=== PATIENT | male | born 1965 | race Caucasian/White ===

== ENCOUNTER → 2017-01-29 | Day surgery (SDC) | payer OTHER ==
[2017-01-29] VITALS (7 sets, daily range): BP systolic 108–139; BP diastolic 64–101; PULSE 60–108; TEMP 36.6; O2SAT 93–96; Ht 190.5 cm; Wt 132.0 kg
[~2017-01-29] VITALS: Ht 190.5 cm; Wt 132.0 kg
[~2017-01-29] MED LIST: APIX1TAB3 PO; ASCO100T PO; ASPI81TA28 PO; B-COTAB18 PO; CHOL1000 PO; COEN100C11 PO; KLOR-CON PO; METO25TA56 PO; OMEG10007 PO; POTA10CA28 PO; PROPOFOL IV EMULSION 10 MG/ML 20 ML VIAL IV ONE; PSYL48.511 PO; PSYLLIUM
--- NOTE | 2017-01-29 07:39 | History & Physical Bridge Note ---
H&P Re-Evaluation Bridge Note: I have examined the patient, reviewed the History & Physical and in the interval since the performance of the History & Physical I have noted the following changes of clinical significance: No changes noted
--- NOTE | 2017-01-29 07:59 | Cardiology Procedure Brief Nt ---
Preliminary Cardiology Note Procedure Date Jan 29, 2017. Pre-Procedure Diagnosis Atrial fibrillation with rapid ventricular response Post-Procedure Diagnosis Successful synchronized electrical cardioversion Procedure(s) Performed Successful synchronized electrical cardioversion Maintenance Inspector Bert E/M Engineer(s) None Estimated Blood Loss None Preliminary Findings Successful synchronized electrical cardioversion ws performed using single 150 J biphasic counter shock. Patient aroused post procedure having tolerated well. Recommendations Medical management Fluids (cc crystalloids) 50 Specimens None Complication(s) None Disposition Home Performance Consultant Holding Area
--- NOTE | 2017-01-29 08:29 | Anesthesiology Progress Note ---
Anesthesia Post Op Note Date & Time Jan 29, 2017 at 08:28 Vital Signs Pain Intensity: 0 Vital Signs Past 12 Hours Date Time Temp Pulse Resp B/P Pulse Ox O2 Delivery O2 Flow Rate FiO2 01/29/17 08:20 62 16 108/68 96 Room Air 01/29/17 08:19 62 16 108/68 96 Room Air 01/29/17 08:09 60 16 107/68 96 Room Air 01/29/17 07:59 60 16 108/79 96 Room Air 01/29/17 07:59 60 16 108/79 96 Room Air 01/29/17 07:55 108 16 109/73 96 Nasal Cannula 4 01/29/17 07:53 108 16 123/86 96 Nasal Cannula 4 01/29/17 07:50 108 16 134/96 96 Nasal Cannula 4 01/29/17 07:45 108 16 127/87 96 Nasal Cannula 4 01/29/17 07:19 36.6 108 16 139/101 93 Room Air Notes Mental Status: alert / awake / arousable, participated in evaluation Pt Amnestic to Procedure: Yes Nausea / Vomiting: adequately controlled Pain: adequately controlled Airway Patency, RR, SpO2: stable & adequate BP & HR: stable & adequate Hydration State: stable & adequate Anesthetic Complications: no major complications apparent
--- NOTE | 2017-01-29 09:17 | Discharge Instructions ---
Discharge Instructions Procedure Procedure Date: Jan 29, 2017. Reason for Visit: W/ Anethesia, Atrial Flutter- Dr. Churchill. Discharge Discharge Date: Jan 29, 2017. Last Recorded Wt (Kilograms): 132 Anesthesia Post Anesthesia Instructions: If you have had General Anesthesia or IV Sedation: * Do not drive today. * Resume driving when surgeon permits. * Do not make important decisions or sign legal documents today. * Call surgeon for: 1. Temperature elevations greater than 101 degrees F. 2. Uncontrollable pain. 3. Excessive bleeding. 4. Persistent nausea and vomiting. 5. Medication intolerance (nausea, vomiting or rash). * For nausea and vomiting use only clear liquids such as: tea, soda, bouillon until nausea subsides, then gradually increase diet as tolerated. * If you have any concerns or questions, call your surgeon's office. If physician is unavailable and it is an emergency, call 911 or go to the nearest emergency room. Instructions Activity Recommendations: limitations as noted below Recommended Home Diet: resume previous diet Allergies: Coded Allergies: No Known Allergies (Unverified , 11/05/14) Provider Instructions ACTIVITY RECOMMENDATIONS: Resume activities as tolerated with no limitations unless specified. __ No lifting over __ pounds for 24 hours. __ Do not engage in vigorous exercise, sexual activity, or sports for 24 hours. __ Do not drive or operate any motorized equipment for 24 hours. __ You may return to work/school tomorrow. _ Follow Up Follow-up with: Racheal Kerns next week as scheduled Alonzo Veliz Recommendations: Call your doctor if: * Temperature above 101 degrees * Pain not relieved by pain medicine ordered * There is increased drainage or redness from any incision * You have any unanswered questions or concerns. Your Doctors Instructions noted above were prepared by provider Aubrey Noel. Patient Signature Section: Patient Instructions Signature Page Manuel Raymond Patient (or Guardian) Signature/Date: I have read and understand the instructions given to me by my caregivers. Caregiver/RN/Doctor Signature/Date: The above-named patient and/or guardian has received patient instructions on this date. + Original Patient Signature Page (only) stays with chart. Please make copy for patient.
--- NOTE | 2017-01-29 10:43 | CARDIOVERSION ---
DATE OF OPERATION: 01/29/2017 DATE OF PROCEDURE: 01/29/2017. SYNCHRONIZED ELECTRICAL CARDIOVERSION REPORT PRIMARY CARE PHYSICIAN: Dr. Cristina Malone. PRIMARY MISSION COMMANDER: Dr. Rhys Churchill. INDICATIONS: Atrial fibrillation with rapid ventricular response symptomatic. PROCEDURE: After informed sent was obtained the patient was sedated via anesthesia consult with continuous heart rate, blood pressure, oxygen and end tidal CO2 monitoring. A single 150 joule biphasic countershock was administered with successful conversion to sinus rhythm. EKG post procedure demonstrated sinus bradycardia with right bundle branch block, left anterior fascicular block. Post procedure patient aroused having tolerated well. RECOMMENDATIONS: The patient will be discharged on same home medications with planned followup with Racheal Kerns as already scheduled next week. The patient cautioned to report any new symptoms or complaints promptly. No adjustments made in medical therapy. I attest to the content of the Intraoperative Record and any orders documented therein. Any exceptio ns are noted below.
== END | disposition home or self-care (01) ==
LOC: C.CATH 06:39
PROVIDERS: ATTEND Internal Medicine Cardiovascular Disease
DX: I48.91 Unspecified atrial fibrillation (principal); I48.92 Unspecified atrial flutter; E78.5 Hyperlipidemia, unspecified; I10 Essential (primary) hypertension; Z79.01 Long term (current) use of anticoagulants; G47.33 Obstructive sleep apnea (adult) (pediatric); Z82.49 Family history of ischemic heart disease and other diseases of the circulatory system

== ENCOUNTER 2017-03-04 11:58 | Emergency (ER) | payer OTHER ==
[~2017-03-04] VITALS: Ht 190.5 cm; Wt 129.5 kg
[2017-03-04] VITALS (7 sets, daily range): BP systolic 114–134; BP diastolic 60–80; PULSE 58–93; TEMP 36.5; O2SAT 95–99; Ht 190.5 cm; Wt 129.5 kg
[~2017-03-04 11:58] MED LIST changes: -ASCO100T PO; +ASCO100T4 PO; -POTA10CA28 PO; -PROPOFOL IV EMULSION 10 MG/ML 20 ML VIAL IV ONE; -PSYL48.511 PO
[2017-03-04] MEDS ORDERED: METOPROLOL TARTRATE 1 MG/ML VIAL IV STA ×3 (12:20→14:10)
--- NOTE | 2017-03-04 12:33 | DIAGNOSTIC IMAGING REPORT ---
SINGLE VIEW CHEST CLINICAL HISTORY: Atypical chest pain. FINDINGS: An AP, portable, upright chest radiograph is compared to study dated 11/05/2014 and correlated with chest CT dated 11/06/2014. The examination is degraded by portable technique and patient rotation. The heart is mildly enlarged. The pulmonary vasculature is noncongested. Chronic interstitial thickening is similar to previous. No airspace consolidation or pleural effusion is identified. No pneumothorax is seen. The bony thorax is grossly intact. Degenerative change is noted throughout the thoracic spine. IMPRESSION: Mild cardiac enlargement with no acute cardiopulmonary abnormality. Electronically signed by: Dimitri Hernandze M.D. 03/04/2017 12:31 PM Dictated Date/Time: 03/04/2017 12:30 PM
[2017-03-04 12:51] LABS: BASO % 0.6 %; BASO ABS # 0.04 K/uL (0-0.2); COMPLETE YES; EOS % 2.9 %; HEMATOCRIT 45.7 % (42-52); IG% 0.2 %; LYMPH % 41.4 %; LYMPH ABS # 2.61 K/uL (1.2-3.4); MEAN CELL VOLUME 89.6 fL (80-100); MEAN CORPUSCULAR HEMOGLOBIN 32.7 pg (25-34); MEAN CORPUSCULAR HGB CONC 36.5 g/dl (32-36); MEAN PLATELET VOLUME 9.7 fL (7.4-10.4); MONO % 7.3 %; NEUT % 47.6 %; PLATELET COUNT 192 K/uL (130-400); WHITE BLOOD COUNT 6.31 K/uL (4.8-10.8)
[2017-03-04 13:07] LABS: BUN/CREATININE RATIO 12.9 (10-20); CALCIUM 9.4 mg/dl (8.5-10.1); CREATININE 0.99 mg/dl (0.60-1.40); MAGNESIUM 2.3 mg/dl (1.8-2.4)
[2017-03-04 13:09] LABS: INR 1.1 (0.9-1.1); PARTIAL THROMBOPLASTIN RATIO 1.2; PROTHROMBIN TIME (PATIENT) 11.3 SECONDS (9.0-12.0)
[2017-03-04] MEDS ORDERED: POTA10CA28 PO (13:48)
[2017-03-04] MEDS ORDERED: PSYL48.511 PO (13:48)
[2017-03-04 13:52] LABS: CHOLESTEROL/HDL RATIO 5.4
[2017-03-04] MEDS ORDERED: MIDAZOLAM HCL 1 MG/ML 2ML VIAL ONE (15:34)
[2017-03-04] MEDS ORDERED: PROPOFOL IV EMULSION 10 MG/ML 20 ML VIAL IV ONE (15:34)
[2017-03-04] MEDS ORDERED: LIDOCAINE HCL 2% 2 ML VIAL (20MG/ML) ONE (15:34)
--- NOTE | 2017-03-04 15:58 | Cardiology Procedure Brief Nt ---
Preliminary Cardiology Note Procedure Date Mar 04, 2017. Pre-Procedure Diagnosis Atrial flutter with rapi ventricular response Post-Procedure Diagnosis Successful synchronized electrical cardioversion Procedure(s) Performed Successful synchronized electrical cardioversion Data Integrity Consultant Bert Home Office Claims Examiner(s) None Estimated Blood Loss None Preliminary Findings Successful synchronized electrical cardioversion was performed using 150J biphasic synchronized electrical countershock Patient aroused tolerated well EKG Sinus Bradycardia RBBB, LAFB Fluids (cc crystalloids) 50 Specimens None Anesthesia Per Dr sampson Complication(s) None Disposition [facility]
[2017-03-04] MEDS ORDERED: METO25TA56 PO (16:00)
--- NOTE | 2017-03-04 16:01 | Discharge Instructions ---
Discharge Instructions Procedure Procedure Date: Mar 04, 2017. Reason for Visit: Cardiac Assessment, Referred By Md. Discharge Discharge Date: Mar 04, 2017. Discharge Diagnosis: Successful synchronized electrical cardioversion Last Recorded Wt (Kilograms): 129.5 Anesthesia Post Anesthesia Instructions: If you have had General Anesthesia or IV Sedation: * Do not drive today. * Resume driving when surgeon permits. * Do not make important decisions or sign legal documents today. * Call surgeon for: 1. Temperature elevations greater than 101 degrees F. 2. Uncontrollable pain. 3. Excessive bleeding. 4. Persistent nausea and vomiting. 5. Medication intolerance (nausea, vomiting or rash). * For nausea and vomiting use only clear liquids such as: tea, soda, bouillon until nausea subsides, then gradually increase diet as tolerated. * If you have any concerns or questions, call your surgeon's office. If physician is unavailable and it is an emergency, call 911 or go to the nearest emergency room. Instructions Activity Recommendations: limitations as noted below, resume regular activity Recommended Home Diet: resume previous diet Allergies: Coded Allergies: No Known Allergies (Unverified , 03/04/17) Provider Instructions ACTIVITY RECOMMENDATIONS: Resume activities as tolerated with no limitations unless specified. __ No lifting over __ pounds for 24 hours. __ Do not engage in vigorous exercise, sexual activity, or sports for 24 hours. __ Do not drive or operate any motorized equipment for 24 hours. __ You may return to work/school tomorrow. Follow Up Follow-up with: Dr Noel as scheduled Alonzo Mckeony Recommendations: Call your doctor if: * Temperature above 101 degrees * Pain not relieved by pain medicine ordered * There is increased drainage or redness from any incision * You have any unanswered questions or concerns. Your Doctors Instructions noted above were prepared by provider Aubrey Noel. Patient Signature Section: Patient Instructions Signature Page Manuel Segundo Patient (or Guardian) Signature/Date: I have read and understand the instructions given to me by my caregivers. Caregiver/RN/Doctor Signature/Date: The above-named patient and/or guardian has received patient instructions on this date. + Original Patient Signature Page (only) stays with chart. Please make copy for patient.
--- NOTE | 2017-03-04 16:05 | CARDIOVERSION ---
DATE OF OPERATION: 03/04/2017 INDICATIONS: A fib/flutter with rapid ventricular response. BRIEF HISTORY: The patient is a 51-year-old male with paroxysmal A fib/flutter who lapsed into atrial arrhythmia post stress echocardiography today. Stress testing negative for ischemia. Rates were poorly controlled with IV beta blockers. He is referred now for synchronized electrical cardioversion. PROCEDURE: After procedure and risks were explained in detail to the patient informed consent was obtained. The patient was sedated by anesthesia consult Dr. Gold in a postprandial state. A single synchronized 150 joule biphasic shock was administered with synchronous timing with successful conversion to sinus rhythm. Postprocedure the patient aroused having tolerated well with plan to discharge to home and continue current therapies with slight increase in beta ismael with metoprolol 15 mg a.m. and 25 p.m. I attest to the content of the Intraoperative Record and any orders documented therein. Any exceptio ns are noted below.
--- NOTE | 2017-03-04 16:24 | Anesthesiology Progress Note ---
Anesthesia Post Op Note Date & Time Mar 04, 2017 at 16:23 Vital Signs Pain Intensity: 0 Vital Signs Past 12 Hours Date Time Temp Pulse Resp B/P Pulse Ox O2 Delivery O2 Flow Rate FiO2 03/04/17 16:11 60 16 118/72 98 Room Air 03/04/17 16:11 62 16 127/78 98 Room Air 03/04/17 16:01 58 16 113/70 96 Room Air 03/04/17 15:51 59 16 131/68 96 Room Air 03/04/17 15:50 58 16 114/70 99 Room Air 03/04/17 15:45 58 16 125/74 99 Nasal Cannula 4 03/04/17 15:40 78 16 116/80 98 Nasal Cannula 4 03/04/17 15:38 78 16 116/60 98 Nasal Cannula 4 03/04/17 15:25 36.5 93 16 134/74 96 Room Air 03/04/17 14:31 110/82 03/04/17 14:30 83 17 95 03/04/17 14:20 109/78 03/04/17 14:16 113 152/96 03/04/17 14:15 69 14 123/84 03/04/17 14:14 113 20 152/96 97 Room Air 03/04/17 14:11 103 16 152/96 96 Room Air 03/04/17 13:50 141 124/70 03/04/17 13:48 118 17 124/70 96 Room Air 03/04/17 12:42 110 16 112/84 95 Room Air 03/04/17 12:35 105 03/04/17 12:30 110 03/04/17 12:22 116 18 131/90 97 Room Air 03/04/17 12:12 98 Room Air 03/04/17 12:12 127 16 159/109 96 Room Air 03/04/17 12:04 36.8 113 18 150/92 96 Room Air Notes Mental Status: alert / awake / arousable, participated in evaluation Pt Amnestic to Procedure: Yes Nausea / Vomiting: adequately controlled Pain: adequately controlled Airway Patency, RR, SpO2: stable & adequate BP & HR: stable & adequate Hydration State: stable & adequate Anesthetic Complications: no major complications apparent Pt doing very well. In SR w/ stable vitals, wide awake.
--- NOTE | 2017-03-04 17:41 | EMERGENCY ROOM VISIT NOTE ---
History Report prepared by Jose M: Elaina Foster Under the Supervision of: Dr. Shine Ortega M.D. First contact with patient: 12:12 Chief Complaint: CARDIAC ASSESSMENT Stated Complaint: CARDIAC ASSESSMENT, REFERRED BY MD Nursing Triage Summary: Pt states sent by component engineer. "I had a stress test this morning. I went into a.flutter so they sent me here to be cardioverted." Denies cp, sob, dizzy, lightheadedness. History of Present Illness The patient is a 51 year old male who presents to the Emergency Room per cardiology referral to be evaluated for a persistent irregular heart rhythm that began this morning. This morning, the patient was doing a stress test on a treadmill. About 7 minutes into the test, the patient converted to a-fib. At that time, the patient did notice some palpitations. Currently, he does not have any complaints and is feeling well except for feeling like his heart is beating very quickly and hard. His most recent meal was last night. He reports drinking 2L water this morning around 0830. The patient has a history of a-fib and had an electrical cardioversion by Dr. Noel on January 29. Denies fever, headaches, chest pain, shortness of breath, vomiting, diarrhea, leg swelling, or other complaints. Source of History: patient Onset: this morning Position: other (global) Quality: other (a-fib) Timing: other (persistent) Associated Symptoms: No SOB, No chest pain, No diarrhea, No fevers, No headache, No vomiting Review of Systems See HPI for pertinent positives & negatives. A total of 10 systems reviewed and were otherwise negative. Past Medical & Surgical Medical Problems: (1) Atrial flutter (2) HTN (hypertension) Family History Patient reports no known family medical history. Social History Smoking Status: Never Smoker Alcohol Use: none Marital Status: Occupation Status: employed Current/Historical Medications Scheduled Apixaban (Eliquis), 5 MG PO BID Ascorbic Acid (Vitamin C), 1 TAB PO DAILY Aspirin (Aspirin Ec), 1 TAB PO DAILY B-Complex Vitamins (Vitamin B Complex), 1 TAB PO DAILY Cholecalciferol (Vitamin D3), 1 TAB PO DAILY Coenzyme Q10 (Ubidecarenone) (Coq-10), 1 TAB PO DAILY Fish Oil ([place]-3), 1 CAP PO DAILY Metoprolol Tartrate (Lopressor) (Lopressor), 1 TAB PO BID Potassium Chloride (Micro-K Ext Rel), 10 MEQ PO DAILY Psyllium (Eq Fiber Therapy), 1 PKT PO DAILY Allergies Coded Allergies: No Known Allergies (Unverified , 03/04/17) Physical Exam Vital Signs Date Time Temp Pulse Resp B/P Pulse Ox O2 Delivery O2 Flow Rate FiO2 03/04/17 16:45 58 18 134/78 98 Room Air 03/04/17 16:30 57 18 132/74 98 Room Air 03/04/17 16:15 60 18 125/70 98 Room Air 03/04/17 16:11 60 16 118/72 98 Room Air 03/04/17 16:11 62 16 127/78 98 Room Air 03/04/17 16:01 58 16 113/70 96 Room Air 03/04/17 15:51 59 16 131/68 96 Room Air 03/04/17 15:50 58 16 114/70 99 Room Air 03/04/17 15:45 58 16 125/74 99 Nasal Cannula 4 03/04/17 15:40 78 16 116/80 98 Nasal Cannula 4 03/04/17 15:38 78 16 116/60 98 Nasal Cannula 4 03/04/17 15:25 36.5 93 16 134/74 96 Room Air 03/04/17 14:31 110/82 03/04/17 14:30 83 17 95 03/04/17 14:20 109/78 03/04/17 14:16 113 152/96 03/04/17 14:15 69 14 123/84 03/04/17 14:14 113 20 152/96 97 Room Air 03/04/17 14:11 103 16 152/96 96 Room Air 03/04/17 13:50 141 124/70 03/04/17 13:48 118 17 124/70 96 Room Air 03/04/17 12:42 110 16 112/84 95 Room Air 03/04/17 12:35 105 03/04/17 12:30 110 03/04/17 12:22 116 18 131/90 97 Room Air 03/04/17 12:12 98 Room Air 03/04/17 12:12 127 16 159/109 96 Room Air 03/04/17 12:04 36.8 113 18 150/92 96 Room Air Physical Exam Constitutional: Vital signs reviewed. Eyes: Pupils are equal round reactive to light. Conjunctiva are noninjected. ENT: Pharynx is clear without erythema or exudate. Mucous membranes are moist. Neck supple without meningeal signs. Respiratory: Clear to auscultation bilaterally. Breath sounds are equal bilaterally. Cardiovascular: Irregularly irregular rhythm. Tachycardic rate between 100 and 125. GI: Soft, nondistended and nontender. Bowel sounds are present. Musculoskeletal: No peripheral edema. No lower extremity tenderness. Integumentary: No cyanosis. Neurological: The patient is awake and alert. No focal deficits. Psychiatric: Normal affect. Medical Decision & Procedures ER Provider Diagnostic Interpretation: Radiology results as stated below per my review and the radiologist's interpretation: SINGLE VIEW CHEST CLINICAL HISTORY: Atypical chest pain. FINDINGS: An AP, portable, upright chest radiograph is compared to study dated 11/05/2014 and correlated with chest CT dated 11/06/2014. The examination is degraded by portable technique and patient rotation. The heart is mildly enlarged. The pulmonary vasculature is noncongested. Chronic interstitial thickening is similar to previous. No airspace consolidation or pleural effusion is identified. No pneumothorax is seen. The bony thorax is grossly intact. Degenerative change is noted throughout the thoracic spine. IMPRESSION: Mild cardiac enlargement with no acute cardiopulmonary abnormality. Electronically signed by: Dimitri Hernandez M.D. 03/04/2017 12:31 PM Dictated Date/Time: 03/04/2017 12:30 PM Laboratory Results 03/04/17 12:38 Red Blood Count 5.10, Mean Corpuscular Volume 89.6, Mean Corpuscular Hemoglobin 32.7, Mean Corpuscular Hemoglobin Concent 36.5, Mean Platelet Volume 9.7, Neutrophils (%) (Auto) 47.6, Lymphocytes (%) (Auto) 41.4, Monocytes (%) (Auto) 7.3, Eosinophils (%) (Auto) 2.9, Basophils (%) (Auto) 0.6, Neutrophils # (Auto) 3.01, Lymphocytes # (Auto) 2.61, Monocytes # (Auto) 0.46, Eosinophils # (Auto) 0.18, Basophils # (Auto) 0.04 03/04/17 12:38 Test 03/04/17 12:38 03/04/17 12:41 White Blood Count 6.31 K/uL (4.8-10.8) Red Blood Count 5.10 M/uL (4.7-6.1) Hemoglobin 16.7 g/dL (14.0-18.0) Hematocrit 45.7 % (42-52) Mean Corpuscular Volume 89.6 fL (80-100) Mean Corpuscular Hemoglobin 32.7 pg (25-34) Mean Corpuscular Hemoglobin Concent 36.5 g/dl (32-36) Platelet Count 192 K/uL (130-400) Mean Platelet Volume 9.7 fL (7.4-10.4) Neutrophils (%) (Auto) 47.6 % Lymphocytes (%) (Auto) 41.4 % Monocytes (%) (Auto) 7.3 % Eosinophils (%) (Auto) 2.9 % Basophils (%) (Auto) 0.6 % Neutrophils # (Auto) 3.01 K/uL (1.4-6.5) Lymphocytes # (Auto) 2.61 K/uL (1.2-3.4) Monocytes # (Auto) 0.46 K/uL (0.11-0.59) Eosinophils # (Auto) 0.18 K/uL (0-0.5) Basophils # (Auto) 0.04 K/uL (0-0.2) RDW Standard Deviation 40.3 fL (36.4-46.3) RDW Coefficient of Variation 12.2 % (11.5-14.5) Immature Granulocyte % (Auto) 0.2 % Immature Granulocyte # (Auto) 0.01 K/uL (0.00-0.02) Prothrombin Time 11.3 SECONDS (9.0-12.0) Prothromb Time International Ratio 1.1 (0.9-1.1) Activated Partial Thromboplast Time 30.4 SECONDS (21.0-31.0) Partial Thromboplastin Ratio 1.2 Anion Gap 6.0 mmol/L (3-11) Est Creatinine Clear Calc Drug Dose 126.3 ml/min Estimated GFR () 100.4 Estimated GFR (Non- 86.6 BUN/Creatinine Ratio 12.9 (10-20) Calcium Level 9.4 mg/dl (8.5-10.1) Magnesium Level 2.3 mg/dl (1.8-2.4) Triglycerides Level 253 mg/dl (0-150) Cholesterol Level 177 mg/dl (0-200) HDL Cholesterol 33 mg/dl LDL Cholesterol, Calculated 93 mg/dl VLDL Cholesterol, Calculated 51 mg/dl Cholesterol/HDL Ratio 5.4 Bedside Troponin I 0.000 ng/ml (0-0.045) Laboratory results as reviewed by me. Medications Administered Medications (Trade) Dose Ordered Sig/Alma Route Start Time Stop Time Status Last Admin Dose Admin Metoprolol Tartrate (Lopressor Iv) 2.5 mg NOW STAT IV 03/04/17 12:20 03/04/17 12:21 DC 03/04/17 12:30 2.5 MG Metoprolol Tartrate (Lopressor Iv) 2.5 mg NOW STAT IV 03/04/17 13:17 03/04/17 13:19 DC 03/04/17 13:50 2.5 MG Metoprolol Tartrate (Lopressor Iv) 2.5 mg NOW STAT IV 03/04/17 14:10 03/04/17 14:11 DC 03/04/17 14:16 2.5 MG ECG Indication: palpitations Rate (beats per minute): 119 Rhythm: atrial fibrillation Findings: other (bifasciular block, nonspecific ST T wave changes) ED Course 1214: The patient was evaluated in room A1. A complete history and physical exam was performed. 1220: Ordered Lopressor 2.5 mg IV. 1235: I reassessed the patient. His heart rate was 99. Dr. Noel will come to see the patient and plans to take the patient to the rn labor and delivery for cardioversion. 1316: I reassessed the patient. His heart rate was 125. We are waiting for Dr. Noel. The patient requested a lipid panel be drawn. Ordered Lopressor 2.5 mg IV. 1408: I reassessed the patient. His heart rate was still in the 120s. He has no complaints at this time. Dr. Noel is currently in a procedure. Ordered Lopressor 2.5 mg IV 1433: I reassessed the patient. Dr. Noel of Cardiology was in the room speaking with the patient. The patient's heart rate was 107. 1435: Dr. Noel will be taking the patient to the rn labor and delivery and will discharge him from there after cardioversion. Medical Decision This is a 51-year-old male who presents with atrial fibrillation. I did perform a limited focused review of portions of the patient's old chart on the electronic medical record. He went under an electrical cardioversion by Dr. Noel on January 29 using 150 joules. I did evaluate the patient as noted above. I did obtain history from the patient as well as Dr. Barahona of cardiology. He did send the patient over for rate control and discuss case with Dr. Burgos for electrical cardioversion. He was given Lopressor 5 mg IV prior to arrival. The patient was placed on a continuous stagecraft professor. I did order and personally review the patient's 12-lead EKG and chest x-ray as described above. The patient is still tachycardic. He was given a total of 3 doses of Lopressor 2.5 mg IV for rate control. His heart rate did come down to about 100. I did order and review the patient's blood work as noted in the electronic medical record. I did discuss the case with Dr. Noel of cardiology who saw the patient in the ED and took him to the cardiac catheterization lab for electrical cardioversion. He will be discharged from the Ophthalmic Nurse. Impression Primary Impression: Atrial fibrillation with rapid ventricular response Critical Care I have personally spent 35 minutes of critical care time in the direct management of this patient. This includes bedside care, interpretation of diagnostic studies, and testing, discussion with consultants, patient, and family members, and other required patient management activities. This 35 minutes is in excess of all separately billable procedures. Scribe Attestation The scribe's documentation has been prepared under my direct and personally reviewed by me in its entirety. I confirm that the note above accurately reflects all work, treatment, procedures, and medical decision making performed by me. Departure Information Dispostion Other (rn labor and delivery for cardioversion) Prescriptions Metoprolol Tartrate (Lopressor) (Lopressor) 25 Mg Tab 1 TAB PO BID for 30 Days, #60 TAB 5 Refills Take Two in am, one in PM Prov: Aubrey Noel M.D. 03/04/17 Referrals Cristina Malone DO (PCP) Patient Instructions [facility]
--- NOTE | 2017-03-05 07:08 | HISTORY & PHYSICAL EXAMINATION ---
DATE OF CONSULTATION: 03/04/2017 REFERRING PHYSICIAN: Dr. Ortega. INDICATIONS: Atrial fib/flutter with rapid ventricular response. HISTORY OF PRESENT ILLNESS: The patient is a 51-year-old male whose history is notable for paroxysmal Afib/flutter, having undergone recently a synchronized electrical cardioversion on 01/30/2017 with successful conversion to sinus rhythm. On evaluation recently, he was found to have intermittent tachypalpitations and he was referred for stress echocardiography. The patient today underwent a nonischemic stress echocardiogram, but while in the recovery phase, once again lapsed back into atrial fibrillation/flutter with rapid ventricular response. He was seen in the Emergency Room for evaluation, referred now for assessment and subsequent synchronized electrical cardioversion by my recommendation. Laboratory studies today demonstrate normal electrolytes. EKG reveals atrial fibrillation/flutter with rapid ventricular response with right bundle-branch block and left anterior fascicular block. ALLERGIES: None. MEDICATIONS PRIOR TO HOSPITALIZATION: Metoprolol 25 mg twice per day, Eliquis 5 mg b.i.d., vitamin B complex, vitamin D3, potassium chloride 10 mg daily, selenium fiber. PAST SURGICAL HISTORY: Notable for vasectomy. SOCIAL HISTORY: The patient is a nonsmoker, nondrinker. 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 OBJECTIVE: VITAL SIGNS: Heart rate is 110. Blood pressures is 134/74. NECK: Thick. There is no jugular venous distention, no carotid bruits. LUNGS: Clear to auscultation. CARDIOVASCULAR: Irregularly irregular. EXTREMITIES: Without cyanosis or clubbing. There is no peripheral edema. ABDOMEN: There is no abdominal tenderness or bloating. LABORATORY DATA: White cell count 6.3, hemoglobin 16.7. Sodium is 140, potassium is 4.0, chloride is 107, bicarbonate is 27, BUN is 13, creatinine is 0.99. Cholesterol is 177 with an LDL of 93 and HDL of 33. IMPRESSION: A 51-year-old male with paroxysmal atrial fibrillation/flutter with recurrence after a recent stress test was nonischemic. Plan will be for synchronized electrical cardioversion today with ultimate plans for increase in beta ismael therapy. Follow up as an outpatient with continued anticoagulation. Discussed possible options of antiarrhythmic therapy if unsuccessful or if short return occurs, likely with inpatient management for initiation of sotalol.
== END 2017-03-04 14:40 | disposition home or self-care (01) ==
LOC: C.EDB 12:00 → C.ED 14:40
DX: I48.0 Paroxysmal atrial fibrillation (principal); I10 Essential (primary) hypertension; Z79.82 Long term (current) use of aspirin